=== PATIENT | male | born 1955 | race Caucasian/White ===

== ENCOUNTER → 2018-02-15 | Outpatient (CLI) | payer OTHER ==
--- NOTE | 2018-02-17 08:30 | XCELERA REPORT ---
[address] [address] Lower Extremity Arterial Evaluation Name: NU RANGEL Age: 62 yrs Gender: Male : 1955 Patient Status: Outpatient Patient Location: Study Date: 02/15/2018 08:22 AM Procedure: A color flow and duplex scan of the lower extremity arteries was performed bilaterally with velocity and waveform anaylsis. Ankle brachial indicies performed. Reason For Study: PAIN Ordering Physician: HONG SCHMIDT Performed By: Lam Munoz Measurements and Calculations Right Left ANNEALING FURNACE TENDER PSV 102.0 94.3 cm/sec Prox PFA PSV -68.1 -87.7 cm/sec Prox SFA PSV 86.1 85.5 cm/sec Mid SFA PSV -99.3 -81.6 cm/sec Dist SFA PSV -65.0 -79.4 cm/sec Prox Pop A PSV 64.6 60.2 cm/sec Dist OSKAR PSV 58.9 83.8 cm/sec Dist INSTRUMENT LENS GRINDER PSV 69.1 72.3 cm/sec Manuel Pedis PSV -117.3 91.8 cm/sec Right Side Arterial Evaluation Normal velocity and triphasic waveforms noted from the Common Femoral artery to the infrageniculate vessels. 0% stenosis. Hints of Atherosclerosis in vessel wall plaque and artefactually elevated CHELSEA. Ankle Brachial index is 1.34.. PPG's normal. Left Side Arterial Evaluation Normal velocity and triphasic waveforms noted from the Common Femoral artery to the infrageniculate vessels. 0% stenosis. Hints of Atherosclerosis in vessel wall plaque and incompressible Posterior Tibial artery. Ankle Brachial index is 1.07.. PPG's are normal. Interpretation Summary No hemodynamically significant lesions in the bilateral lower extremities, on duplex imaging, at rest. Suggestion of atherosclerotic disease present even with no hemodynamically significant lesions. : HONG SCHMIDT > Nicolas Hyman
== END ==
LOC: SP 07:23
PROVIDERS: ATTEND Podiatrist Foot & Ankle Surgery
DX: I73.9 Peripheral vascular disease, unspecified (principal)
CPT/HCPCS: 93922; 93925